=== PATIENT | male | born 1970 | race Caucasian/White ===

== ENCOUNTER 2022-03-16 12:33 | Emergency (ER) | payer OTHER ==
[~2022-03-16] VITALS: Ht 182.9 cm; Wt 96.0 kg
[2022-03-16] MEDS ORDERED: AUGMENTIN 875 MG TAB PO SCH (14:55)
[2022-03-16] MEDS ORDERED: AMPICILLIN SOD/SULBACTAM SOD 3 GM in D5W MINI-BAG PLUS 100 ML IV ONE (14:55)
[2022-03-16] MEDS ORDERED: BOOSTRIX/ADACEL VACCINE (DIPHTH/PERTUSS/ACELL/TETANUS) 0.5ML SYR IM.IMMUN ONE (14:55)
[2022-03-16] MEDS ORDERED: AMOX875T2 PO (15:00)
[2022-03-16] MEDS ORDERED: ONDANSETRON 4MG 2ML VIAL IV ONE (16:35)
[2022-03-16 17:14] VITALS: BP 168/111
== END 2022-03-16 17:16 | disposition home or self-care (01) ==
LOC: M ED 12:33
DX: S71.151A Open bite, right thigh, initial encounter (principal); S61.451A Open bite of right hand, initial encounter; W54.0XXA Bitten by dog, initial encounter; Y92.009 Unspecified place in unspecified non-institutional (private) residence as the place of occurrence of the external cause; I10 Essential (primary) hypertension; Z23 Encounter for immunization
CPT/HCPCS: 90471; 90715; 96365; 96375; 99284; J0295; J2405

== ENCOUNTER → 2022-03-19 | Outpatient (CLI) | payer OTHER ==
[~2022-03-19] MED LIST: AMOX875T2 PO
== END ==
LOC: M SOG 15:08
PROVIDERS: ATTEND Physician Assistant
DX: M79.641 Pain in right hand (principal)